=== PATIENT | female | born 1975 | race Caucasian/White ===

== ENCOUNTER 2025-01-17 10:59 | Outpatient (OUT) | payer BC, SELFPAY ==
[2025-01-17 11:33] LABS: Hematocrit 40.1 % (36.0-48.0); Hemoglobin 13.4 g/dL (12.0-16.0); Immature Granulocytes Abs Auto 0.01 10^3/uL (0.00-0.03); Immature Granulocytes Pct Auto 0.2 % (0.0-0.5); Lymphocytes Absolute Auto 1.6 10^3/uL (1.2-3.8); Mean Corpuscular HGB Conc 33.4 g/dL (29.9-35.2); Mean Corpuscular Hemoglobin 29.8 pg (26.7-34.0); Mean Corpuscular Volume 89.1 fL (81.0-99.0); Platelet Count 244 10^3/uL (150-450); Red Blood Count 4.50 10^6/uL (4.20-5.40); White Blood Count 5.3 10^3/uL (4.0-11.0)
[2025-01-17 11:37] LABS: Alanine Aminotransferase 25 U/L (14-59); Albumin Globulin Ratio 1.1; Albumin Level 3.5 g/dL (3.4-5.0); Alkaline Phosphatase 51 U/L (46-116); Anion Gap 11.7; Aspartate Amino Transferase 10 U/L (15-37); Blood Urea Nitrogen 24.0 mg/dL (7.0-18.0); Calcium 8.2 mg/dL (8.5-10.1); Carbon Dioxide 27.6 mmol/L (21.0-32.0); Chloride 108 mmol/L (98-107); Cholesterol 169 mg/dL (<=200); Estimated GFR (African America >60 (>=60 mL/min/1.73m^2); Estimated GFR (Non-African Ame >60 (>=60 mL/min/1.73m^2); Globulin 3.3 g/dL; Glucose 99 mg/dL (74-106); HDL Cholesterol 78 mg/dL (40-60); Potassium 4.3 mmol/L (3.5-5.1); Sodium 143 mmol/L (136-145); Thyroid Stimulating Hormone 0.645 uIU/mL (0.358-3.740); Total Protein 6.8 g/dL (6.4-8.2); Triglycerides 28 mg/dL (<=150); VLDL CHOLESTEROL 5.6 mg/dL
[2025-01-17 12:30] LABS: Ferritin 60.0 ng/mL (8.0-252.0); Folate 13.20 ng/mL (8.60-58.90)
[2025-01-18 04:09] LABS: Vitamin B12 431 pg/mL (232-1245)
== END 2025-01-17 11:00 | disposition home or self-care (01) ==
PROVIDERS: PCP Internal Medicine; Visit Provider Internal Medicine
DX: K90.0 Celiac disease (principal); Z00.00 Encounter for general adult medical examination without abnormal findings; R53.83 Other fatigue
CPT/HCPCS: 36415; 80053; 80061; 82607; 82728; 82746; 84443; 85025

== ENCOUNTER 2025-01-20 13:23 | Outpatient (OUT) | payer BC, SELFPAY ==
--- NOTE | 2025-01-20 13:25 | MM_ITS ---
Patient Name: HENOK GILL MR#: [id number] : 1975 Exam Date: 01/20/2025 Ordering Doctor: DR WOLFGANG SHIRLEY D.O. RADIOLOGY REPORT PROCEDURE: MM TOMOSYNTHESIS SCREENING BI COMPARISON: MG MAMM SCREEN 3D IDALMIS CAD, 11/30/2018. INDICATIONS: Screening Calculator Name NCI Breast Cancer Risk Assessment Tool 5 Year Breast Cancer Risk 0.60% Lifetime Breast Cancer Risk 6.20% Personal Breast Cancer No Personal Ovarian Cancer No Treatments None Family Cancers Mother with basil cell carcinoma cancer at age 70. LOCATION: [facility] BREAST COMPOSITION: The breasts are heterogeneously dense, which may obscure small masses. FINDINGS: DIAGNOSTIC CATEGORY 1--NEGATIVE. RIGHT BREAST: No significant suspicious finding. LEFT BREAST: No significant suspicious finding. RECOMMENDATIONS: ROUTINE MAMMOGRAM AND CLINICAL EVALUATION IN 12 MONTHS. Dictated by: Manuel Lenz DO on 01/21/2025 at 13:32 Approved by: Manuel Lenz DO on 01/21/2025 at 13:44
== END 2025-01-20 13:24 | disposition home or self-care (01) ==
LOC: MAMMO 13:23
PROVIDERS: PCP Internal Medicine; Visit Provider Internal Medicine
DX: Z12.31 Encounter for screening mammogram for malignant neoplasm of breast (principal); Z80.8 Family history of malignant neoplasm of other organs or systems
CPT/HCPCS: 77063; 77067